=== PATIENT | female | born 1975 | race Two or more races ===

== ENCOUNTER → 2019-10-14 | Emergency (ER) | payer MEDICAID ==
[~2019-10-14] VITALS: Ht 157.5 cm; Wt 68.0 kg
[~2019-10-14] MED LIST: DICYCLOMINE HCL10 MG ORAL; GABAPENTIN100 MG ORAL; OMEPRAZOLE20 M3 ORAL; TYLENOL EXTRA500 MG ORAL; ZOFRAN4 M1 ORAL
[2019-10-14 13:20] VITALS: BP 126/72
--- NOTE | 2019-10-14 13:20 | NUR ---
ED Nurse Note: Patient walked into ED from home c/o / chest pain x 3 days. Pain radiates to left arm, is intermittent. Patient states it feels worse today. Patient saw Dr. Khalil, who told her to go to the ED> Patient AxO x 4, on the engine monitor. Blood and urine sent to lab.
[2019-10-14 13:50] LABS: BASOPHILS % (AUTO) 0.7 % (0.0-2.0); EOSINOPHILS % (AUTO) 1.4 % (0.0-3.0); HEMATOCRIT 41.3 % (37.0-47.0); HEMOGLOBIN 14.8 G/DL (12.0-16.0); LYMPHOCYTES % (AUTO) 29.8 % (20.0-45.0); MEAN CORPUSCULAR VOLUME 85 FL (80-99); MONOCYTES % (AUTO) 6.8 % (1.0-10.0); NEUTROPHILS % (AUTO) 61.4 % (45.0-75.0); PLATELET COUNT 332 K/UL (150-450); RED BLOOD COUNT 4.86 M/UL (4.20-5.40); WHITE BLOOD COUNT 9.9 K/UL (4.8-10.8)
[2019-10-14 13:59] LABS: APPEARANCE,URINE CLEAR; BILIRUBIN, URINE NEGATIVE (NEGATIVE); COLOR,URINE PALE YELLOW; GLUCOSE, URINE (UA) NEGATIVE (NEGATIVE); KETONES,URINE NEGATIVE (NEGATIVE); LEUKOCYTE ESTERASE ,URINE NEGATIVE (NEGATIVE); NITRITE,URINE NEGATIVE (NEGATIVE); PH,URINE 7 (4.5-8.0); PROTEIN,URINE NEGATIVE (NEGATIVE); UROBILINOGEN,URINE NORMAL MG/DL (0.0-1.0)
[2019-10-14 13:59] LABS: ANION GAP 13 mmol/L (5-15); BLOOD UREA NITROGEN 6 mg/dL (7-18); CALCIUM 9.5 MG/DL (8.5-10.1); CARBON DIOXIDE 24 MMOL/L (21-32); CHLORIDE 104 MMOL/L (98-107); CREATININE 0.7 MG/DL (0.55-1.30); POTASSIUM 3.8 MMOL/L (3.5-5.1); SODIUM 141 MMOL/L (136-145)
[2019-10-14 14:09] LABS: ALANINE AMINOTRANSFERASE 32 U/L (12-78); ALBUMIN 4.2 G/DL (3.4-5.0); ALBUMIN/GLOBULIN RATIO 0.9 (1.0-2.7); ALKALINE PHOSPHATASE 76 U/L (46-116); ASPARTATE AMINO TRANSFERASE 23 U/L (15-37); BILIRUBIN,TOTAL 0.6 MG/DL (0.2-1.0)
--- NOTE | 2019-10-14 14:19 | Emergency Room Report ---
History of Present Illness General Chief Complaint: Chest Pain Source: Patient Present Illness HPI 43-year-old female with no symptom past medical history sent in by primary doctor due to chest pain radiating to left arm and jaw x2 days. Patient also complains of diarrhea, nausea vomiting and feeling chills. Denies sore throat, cough and congestion. Vital signs are stable, afebrile, oxygenation within normal limits. Reports that she went to her primary doctor earlier and had an EKG done and was told that the EKG is abnormal and should go to the emergency room. Patient does not have a copy of the EKG with her. Reports that the pain is worse when laying down and better when sitting up. Denies any cardiac history. Has not been seen by paraffiner in the past. Denies tobacco smoke, drug use, alcohol intake. Denies . Denies leg swelling, calf tenderness, pleuritic chest pain. Allergies: Coded Allergies: MORPHINE (Verified Allergy, Unknown, 10/14/19) COVID-19 Screening Contact w/high risk pt: No Recent Travel to affected area: No Experienced COVID-19 symptoms?: No COVID-19 Testing performed SERVER: No Patient History Past Medical History: see triage record Past Surgical History: none Pertinent Family History: none Now: No Immunizations: UTD Reviewed Nursing Documentation: PMH: Agreed; PSxH: Agreed Review of Systems All Other Systems: negative except mentioned in HPI Physical Exam Vital Signs Date Time Temp Pulse Resp B/P (MAP) Pulse Ox O2 Delivery O2 Flow Rate FiO2 10/14/19 13:12 98.2 71 22 126/72 (90) 99 Room Air Sp02 EP Interpretation: reviewed, normal General Appearance: no apparent distress, alert, GCS 15, non-toxic Head: normocephalic, atraumatic Eyes: bilateral eye normal inspection, bilateral eye PERRL ENT: hearing grossly normal, normal pharynx, no angioedema, normal voice Neck: full range of motion, supple/symm/no masses Respiratory: chest non-tender, lungs clear, normal breath sounds, no rhonchi, no respiratory distress, no retraction, speaking full sentences Cardiovascular #1: regular rate, rhythm, no edema, no murmur Cardiovascular #2: 2+ radial (R), 2+ dorsalis pedis (R), 2+ dorsalis pedis (L) Gastrointestinal: normal bowel sounds, non tender, soft, non-distended, no guarding, no rebound Genitourinary: normal inspection, no CVA tenderness Musculoskeletal: back normal, digits/nails normal, no calf tenderness, pelvis stable Neurologic: alert, motor strength/tone normal, oriented x3, sensory intact, responsive, speech normal Psychiatric: judgement/insight normal, memory normal, mood/affect normal, no suicidal/homicidal ideation Skin: no rash Lymphatic: no adenopathy Medical Decision Making PA Attestation All my diagnosis and treatment plans were reviewed ad discussed with my supervising physician Dr. Pinto Diagnostic Impression: Primary Impression: Chest pain Additional Impression: Acute diarrhea ER Course 43-year-old female with no symptom past medical history sent in by primary doctor due to chest pain radiating to left arm and jaw x2 days. Patient also complains of diarrhea, nausea vomiting and feeling chills. Denies sore throat, cough and congestion. Vital signs are stable, afebrile, oxygenation within normal limits. Reports that she went to her primary doctor earlier and had an EKG done and was told that the EKG is abnormal and should go to the emergency room. Patient does not have a copy of the EKG with her. Reports that the pain is worse when laying down and better when sitting up. Denies any cardiac history. Has not been seen by paraffiner in the past. Denies tobacco smoke, drug use, alcohol intake. Denies . Denies leg swelling, calf tenderness, pleuritic chest pain. Ddx considered but are not limited to: OK, Angina, COPD, GERD, Vital signs: are WNL, pt. is afebrile H&PE are most consistent with chest pain, acute diarrhea, possible gastritis ORDERS: EKG, Chest XR, cardiac labs(troponin, CBC, CMP, lipid, BNP), omeprazole , Tylenol, dicyclomine, Zofran ED INTERVENTIONS: Zofran, NS bolus, Pepcid DISCHARGE: At this time pt. is stable for d/c to home. Will provide printed patient care instructions, and any necessary prescriptions. Care plan and follow up instructions have been discussed with the patient prior to discharge. Patient to follow primary doctor for referral to paraffiner as needed, take medication as directed, also send patient to get tested for COVID[address]. If worsening symptoms return to emergency room EKG Diagnostic Results Rate: normal Rhythm: NSR ST Segments: no acute changes Other Impression No acute ST changes Chest X-Ray Diagnostic Results Chest X-Ray Diagnostic Results : Chest X-Ray Ordered: Yes # of Views/Limited/Complete: 1 View Indication: Chest Pain EP Interpretation: Yes EVE Xray: Interpretation reviewed, by supervising MD, and agrees with findings. Interpretation: no consolidation, no effusion, no pneumothorax Impression: No acute disease Electronically Signed by: Wander Monaco PA-C Last Vital Signs Date Time Temp Pulse Resp B/P (MAP) Pulse Ox O2 Delivery O2 Flow Rate FiO2 10/14/19 13:12 98.2 71 22 126/72 (90) 99 Room Air Disposition: HOME, SELF-CARE Condition: Stable Scripts Acetaminophen* (TYLENOL EXTRA STRENGTH*) 500 Mg Tablet 500 MG ORAL Q8H PRN for Prn Headache/Temp > 101, #30 TAB 0 Refills Prov: Wander Ly 10/14/19 Dicyclomine Hcl* (DICYCLOMINE HCL*) 10 Mg Capsule 10 MG ORAL QID, #20 CAP Prov: Wander Ly 10/14/19 Ondansetron (Zofran) 4 Mg Tablet 4 MG ORAL Q6H PRN for Nausea & Vomiting, #14 TAB Prov: Wander Ly 10/14/19 Omeprazole (OMEPRAZOLE) 20 Mg Tablet.dr 20 MG ORAL DAILY, #30 TAB Prov: Wander Ly 10/14/19 Patient Instructions: Diarrhea, Adult, [id number], Nonspecific Chest Pain Additional Instructions: Take medication as directed, increase oral hydration, have primary doctor send you to a paraffiner, if worsening symptoms return to emergency room Wander Ly October 14, 2019 14:19
--- NOTE | 2019-10-14 14:25 | Diagnostic Imaging Report ---
Indication: Chest pain Technique: XRAY Chest 1v Comparison: None Findings: Heart size and mediastinal contours are within normal limits for AP technique. There is no focal airspace consolidation, pneumothorax or pleural effusion. Osseous structures demonstrate no acute abnormality. Impression: No radiographic evidence of acute cardiopulmonary disease.
== END | disposition home or self-care (01) ==
LOC: EMR 13:30
DX: R07.9 Chest pain, unspecified (principal); R19.7 Diarrhea, unspecified; Z88.5 Allergy status to narcotic agent
CPT/HCPCS: 36415; 71045; 80053; 80307; 81003; 81025; 83880; 84484; 85025; 85610; 85730; 93005; Z7502; 99284